=== PATIENT | female | born 1995 | race African-American/Black ===

== ENCOUNTER 2023-09-02 19:36 | Emergency (ER) | payer BC, SELFPAY ==
[2023-09-02 19:51] VITALS: BP 115/63; PULSE 85; RESP 14; TEMP 37; O2SAT 100
--- NOTE | 2023-09-02 20:22 | ED.FEMALEGU ---
HPI - Female Genitourinary General Chief complaint: Urogenital-Female Stated complaint: UTI Time Seen by Provider: 09/02/23 20:22 Source: patient Mode of arrival: ambulatory Limitations: no limitations History of Present Illness HPI Narrative: 28-year-old female presents with complaint of urinary frequency, urgency, dysuria for 2 days. Afebrile. Reports some lower abdominal pressure after urinating. Denies back pain. Denies . Having normal bowel movements. All systems reviewed and negative except as noted above. Related Data Allergies Allergy/AdvReac Type Severity Reaction Status Date / Time No Known Allergies Allergy Verified 09/02/23 20:29 Review of Systems Review of Systems: CONSTITUTIONAL: Denies fever, chills, or sweats. EYES: Denies visual changes, redness, or discharge. ENT: Denies rhinorrhea, congestion, sore throat, or otalgia. CARDIOVASCULAR: Denies chest pain, palpitations, or edema. RESPIRATORY: Denies cough or dyspnea. GASTROINTESTINAL: Denies abdominal pain, nausea, vomiting, or diarrhea. GENITOURINARY: Reports dysuria, frequency, urgency. Denies hematuria. SKIN: Denies rash or itching. MUSCULOSKELETAL: Denies back pain, joint pain, or myalgia. NEUROLOGIC: Denies headache, numbness, or weakness. PSYCHIATRIC: Denies anxiety or depression. All other systems reviewed are negative, except as documented in HPI. PMFSH Comments At time of signature, agree with nursing past medical, surgical, social and family history. There is no relevant family history pertinent to the presenting complaint. Exam Narrative: GENERAL: This is a well-nourished, well-developed patient, in no apparent distress. HEAD: normocephalic, atraumatic. EYES: PERRL. Sclera clear/white. Vision is grossly intact. EARS: External ears normal NOSE: External nose normal NECK: Neck supple, non-tender without lymphadenopathy, masses or thyromegaly. CARDIOVASCULAR: Regular rate and rhythm without murmurs, gallops, or rubs. RESPIRATORY: Clear to auscultation. Breath sounds equal bilaterally. No wheezes, rales, or rhonchi. SKIN: warm, Dry, intact with no suspicious lesions or rash, good texture and turgor. NEURO: awake, alert, and oriented to person, place and time. There were no obvious focal neurologic abnormalities. EXTREMITIES: No joint tenderness, effusion, or edema noted. Course Course Level of Care: Express Care Visit Vital Signs Vital signs: Vital Signs Temperature 37.0 C 09/02/23 19:51 Pulse Rate 85 09/02/23 19:51 Respiratory Rate 14 09/02/23 19:51 Blood Pressure 115/63 09/02/23 19:51 Pulse Oximetry 100 09/02/23 19:51 Oxygen Delivery Room Air 09/02/23 19:51 Temperature 37.0 C 09/02/23 19:51 Pulse Rate 85 09/02/23 19:51 Respiratory Rate 14 09/02/23 19:51 Blood Pressure 115/63 09/02/23 19:51 Pulse Oximetry 100 09/02/23 19:51 Oxygen Delivery Room Air 09/02/23 19:51 MDM - Female Genitourinary MDM Narrative Medical decision making narrative: use of leukocytes, 3+ blood. Will treat patient for urinary tract infection due to symptoms and urinalysis. Nontoxic. Patient is aware of diagnosis, understands and agrees to treatment plan. Anticipatory guidance given. Patient agrees to follow-up as directed and is aware of reasons to seek care at the emergency department. Portions of this record may have been created with voice recognition software Differential Diagnosis Differential diagnosis: Likely urinary tract infection Lab Data Labs: UCG Bedside Result Negative Reference Range: Negative Urine Glucose Negative Reference Range: Negative Urine Bilirubin Negative Reference Range: Negative Urine Ketone Negative
== END 2023-09-02 20:31 | disposition home or self-care (01) ==
PROVIDERS: Emergency Provider Nurse Practitioner Family
DX: N39.0 Urinary tract infection, site not specified (principal); B96.20 Unspecified Escherichia coli [E. coli] as the cause of diseases classified elsewhere; J45.909 Unspecified asthma, uncomplicated
CPT/HCPCS: 81003; 81025; 87077; 87086; 87088; 87186; 99203; G0463

== ENCOUNTER 2023-12-12 17:46 | Emergency (ER) | payer BC, SELFPAY ==
[2023-12-12 18:00] VITALS: BP 108/60; PULSE 112; RESP 16; TEMP 37.2; O2SAT 100
--- NOTE | 2023-12-12 18:01 | ED.FEMALEGU ---
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 She reports 1 month ago she had a spontaneous of a 5 week . She reports she has had bleeding since that time. Reports 3 days ago she began having heavier amount of bleeding with large clots, she needs to wear incontinence briefs because of the large amount of bleeding and she is soaking through those. She denies fever. Reports she has began having some abdominal and bilateral flank pain today. She reports she is passing clots approximately the size of her palm MD elicited complaint: vaginal bleeding Related Data Allergies Allergy/AdvReac Type Severity Reaction Status Date / Time No Known Allergies Allergy Verified 12/12/23 18:29 Review of Systems Review of Systems: CONSTITUTIONAL: Denies malaise, chills, sweats, or fever. CARDIOVASCULAR: Denies chest pain, palpitations, or edema. RESPIRATORY: Denies cough or dyspnea. GASTROINTESTINAL: Reports abdominal pain. Denies nausea, vomiting, diarrhea, bloody, or mucous stools. GENITOURINARY: Reports heavy vaginal bleeding with large clots SKIN: Denies rash or itching. MUSCULOSKELETAL: Reports flank pain All systems reviewed & are unremarkable except as noted in HPI and below PMFSH Comments At time of signature, agree with nursing past medical, surgical, social and family history. There is no relevant family history pertinent to the presenting complaint Exam Narrative: GENERAL: Nontoxic-appearing, well-nourished, and in no acute distress. HEAD: Normocephalic EYES: PERRLA, sclera clear ENT: Nares clear. Mucous membranes moist NECK: Supple. CHEST: No respiratory distress. Speaks in full sentences. HEART: Fast rate EXTREMITIES: Normal range of motion. No edema. Normal strength and sensation. SKIN: Warm, dry, no visible rash. NEURO: Alert and oriented x3. PSYCH: Normal mood and affect Course Course Emergency Course: Patient is aware of, understands and agrees to be transferred to the emergency room. Patient agrees to proceed directly to the emergency department. Portions of this record may have been created with voice recognition software Level of Care: Express Care Visit Vital Signs Vital signs: Vital Signs Temperature 98.9 F 12/12/23 18:00 Pulse Rate 112 H 12/12/23 18:00 Respiratory Rate 16 12/12/23 18:00 Blood Pressure 108/60 12/12/23 18:00 Pulse Oximetry 100 12/12/23 18:00 Oxygen Delivery Room Air 12/12/23 18:00 Temperature 98.9 F 12/12/23 18:00 Pulse Rate 112 H 12/12/23 18:00 Respiratory Rate 16 12/12/23 18:00 Blood Pressure 108/60 12/12/23 18:00 Pulse Oximetry 100 12/12/23 18:00 Oxygen Delivery Room Air 12/12/23 18:00 Reviewed. Transfer Transfered to: [facility] Transportation: Other (private vehcile) Transfer rationale: Heavy vaginal bleeding Accepting physician: Cory MDM - Female Genitourinary MDM Narrative Medical decision making narrative: Patient exam finding and symptoms warrant further evaluation the emergency room Critical Care Time Critical Care Time Critical Care Time: No Discharge Plan Discharge Clinical Impression: Vaginal bleeding Patient Disposition: Acute Care Hospital Condition: Stable Prescriptions: No Action phenazopyridine [Pyridium] 200 mg tablet 200 mg PO TID PRN (Reason: pain) 3 Days Qty: 10 0RF cephalexin 500 mg capsule 500 mg PO Q12H 7 Days Qty: 14 0RF Follow-up/Referrals: PHYSICIAN NOT ON STAFF,NONSTAFF [Primary Care Provider] - Time of Disposition: 19:00
[2023-12-12 18:15] VITALS: PULSE 110; RESP 18
== END 2023-12-12 18:15 | disposition short-term general hospital (02) ==
PROVIDERS: Emergency Provider Nurse Practitioner
DX: N93.9 Abnormal uterine and vaginal bleeding, unspecified (principal)
CPT/HCPCS: 99212; G0463

== ENCOUNTER 2023-12-12 18:27 | Day surgery (SDC) | payer BC, SELFPAY ==
[2023-12-12 19:02] VITALS: BP 93/49; PULSE 106; RESP 16; TEMP 36.2; O2SAT 100
--- NOTE | 2023-12-12 20:27 | ED.PREGNANCY ---
HPI - General Chief complaint: Vaginal Bleeding Stated complaint: VAG BLEEDING, HX MISCARRIAGE 11/11 Time Seen by Provider: 12/12/23 20:17 Source: patient Mode of arrival: ambulatory Limitations: no limitations History of Present Illness HPI Narrative: This is a 28 year old female that presents to the ER for abnormal uterine bleeding. Reports she had was around 8 weeks by LMP and US showing a of about 5 weeks. She was told the baby stopped growing. Took medications to induce . Reports this was about a month ago. She has been bleeding since. Reports the last couple of days her bleeding has become very heavy. Her OB is in [place]. Reports pelvic cramping. Denies fever, vomiting, dysuria. Related Data Allergies Allergy/AdvReac Type Severity Reaction Status Date / Time No Known Allergies Allergy Verified 12/12/23 18:29 Review of Systems Review of Systems: CONSTITUTIONAL: Denies fever GASTROINTESTINAL: Reports abdominal pain. Denies nausea, vomiting All systems reviewed & are unremarkable except as noted in HPI and below PMFSH Past Medical History Medical History (Updated 12/12/23 @ 22:50 by Jennifer Jacome PA-C) No active medical problems Social History Social History (Updated 12/12/23 @ 20:30 by Jennifer Jacome PA-C) Smoking status: Never smoker Exam Narrative: GENERAL: Well-appearing, well-nourished, and in no acute distress. HEAD: Normocephalic, atraumatic. EYES: EOMI. CHEST: Clear to auscultation. No respiratory distress. No wheezes rales or rhonchi HEART: Regular rate and rhythm. No murmur heard. Normal peripheral pulses. ABDOMEN: Soft, nontender, nondistended, normal active bowel sounds. EXTREMITIES: Normal range of motion. No edema. SKIN: Warm, dry, no rash. NEURO: No focal deficits. Alert and oriented x3. PSYCH: Normal mood and affect Course Course Emergency Course: patient updated on workup and recommendation for further management with D&C Consultations Consultation #1: Spoke with Dr. Farzad Hong about patient and workup who will take patient to the OR for D&C Date: 12/12/23 Vital Signs Vital signs: Vital Signs Temperature 97.2 F L 12/12/23 19:02 Pulse Rate 106 H 12/12/23 19:02 Respiratory Rate 16 12/12/23 19:02 Blood Pressure 93/49 L 12/12/23 19:02 Pulse Oximetry 100 12/12/23 19:02 Temperature 97.2 F L 12/12/23 19:02 Pulse Rate 106 H 12/12/23 19:02 Respiratory Rate 16 12/12/23 19:02 Blood Pressure 93/49 L 12/12/23 19:02 Pulse Oximetry 100 12/12/23 19:02 MDM - OB/Uterine Contractions MDM Narrative Medical decision making narrative: patient presents to the emergency department after a recent miscarriage with increasing vaginal bleeding. Mildly tachycardic and blood pressure soft upon arrival. Given a L of IV fluids in the ED. blood pressure and heart rate did respond. Cbc shows normocytic anemia hemoglobin of 8.5. Metabolic panel without concerning findings. Quantitative beta-hCG 191. Spoke with Dr. Farzad Hong about patient and workup who will take patient to the OR for D&C. patient updated on workup and agrees with plan of care Differential Diagnosis Differential diagnosis: Likely other ( incomplete , retained products of conception, anemia) Lab Data Attestation: I reviewed the patient's lab results. 12/12/23 21:15 12/12/23 21:15 Labs: Lab Results 12/12/23 12/12/23 Range/Units 21:15 21:58 WBC 7.0 (4.5-10.0) K/mm3 RBC 2.59 L (4.2-5.4) M/mm3 Hgb 8.5 L (12.0-15.0) g/dL Hct 25.9 L (37.0-47.0) % MCV 100.0 (80-100) fl MCH 32.8 (26-34) pg MCHC 32.8 (32-36) g/dl RDW 12.9 (11.5-14.5) % Plt Count 225 (150-375) k/mm3 MPV 9.9 (7.4-10.4) fl Immature Gran % (Auto) 0.3 (0-0.5) % Neut % (Auto) 83.7 H (45.5-73.1) % Lymph % (Auto) 11.5 L (18.3-44.2) % [place] % (Auto) 3.8 (2.6-8.5) % Eos % (Auto) 0.4 (0-4.4) % Baso % (A
[2023-12-12] MEDS: SODIUM CHLORIDE 0.9% IV 1,000 ML 999 ML IV CONT (21:14)
[2023-12-12 21:26] LABS: Basophils Percent Auto 0.3 % (0.2-1.2); Eosinophils Percent Auto 0.4 % (0-4.4); Hematocrit 25.9 % (37.0-47.0); Hemoglobin 8.5 g/dL (12.0-15.0); Immature Granulocyte Absolute 0.02 K/mm3 (0.00-0.031); Immature Granulocyte Percent A 0.3 % (0-0.5); Lymphocytes Absolute Auto 0.81 K/mm3 (0.9-3.2); Lymphocytes Percent Auto 11.5 % (18.3-44.2); Mean Corpuscular HGB Conc 32.8 g/dl (32-36); Mean Corpuscular Hemoglobin 32.8 pg (26-34); Mean Platelet Volume 9.9 fl (7.4-10.4); Monocytes Absolute Auto 0.3 K/mm3 (0.1-0.6); Monocytes Percent Auto 3.8 % (2.6-8.5); Neutrophils Absolute Auto 5.9 K/mm3 (1.3-6.7); Neutrophils Percent Auto 83.7 % (45.5-73.1); Platelet Count Result 225 k/mm3 (150-375); Red Blood Count 2.59 M/mm3 (4.2-5.4); Red Cell Distribution Width 12.9 % (11.5-14.5)
[2023-12-12 21:37] LABS: Alanine Aminotransferase 7 U/L (6-35); Alkaline Phosphatase 66 U/L (38-126); Anion Gap 6 mmol/L (4-12); Aspartate Amino Transferase 21 U/L (14-36); Bilirubin,Total 0.7 mg/dL (0.2-1.3); Blood Urea Nitrogen 11 mg/dL (7-17); Carbon Dioxide 25 mmol/L (22-30); Chloride 107 mmol/L (98-107); Estimated CRCL calculation 77 ml/min; Estimated Glomerular Filt Rate > 60; Glucose 111 mg/dL (65-110); Potassium 3.7 mmol/L (3.4-5.0); Sodium 138 mmol/L (137-145)
[2023-12-12 21:52] LABS: Beta HCG Quantitative 191.51 mIU/ML
[2023-12-12 22:13] LABS: INR 1.3; Partial Thromboplastin Time 27.8 Seconds (22.3-36.8); Prothrombin Time 16.9 Seconds (11.1-14.7)
--- NOTE | 2023-12-12 22:44 | PM.IMHP ---
H&P: HPI History of Present Illness Date/Time: 12/12/23 22:44 Chief Complaint: Vaginal bleeding with 1st trimester Narrative: 28-year-old 2 para seen through the ER after failed first-trimester cc she was given medication induce portion she is bleeding fairly. . Ultrasound small pill for. She continues to bleed suction dilatation curettage will be undertaken as this is retained placenta risks and exclusive aspiration, bleeding, transfusion, perforation injury to bladder with need PMFSH Past Medical History Medical History No active medical problems Social History Social History Smoking status: Never smoker Meds Home Medications and Allergies Home Medications Medication Instructions Recorded Confirmed Type cephalexin 500 mg capsule 500 mg PO Q12H 7 days #14 caps 09/02/23 Rx phenazopyridine 200 mg tablet 200 mg PO TID PRN pain 3 days #10 09/02/23 Rx (Pyridium) tabs Allergies Allergy/AdvReac Type Severity Reaction Status Date / Time No Known Allergies Allergy Verified 12/12/23 18:29 Vital Signs Vital Signs - 24 hr 12/12/23 19:02 Temperature 97.2 F L Pulse Rate 106 H Respiratory Rate 16 Blood Pressure 93/49 L Pulse Oximetry 100 Exam Const: General: cooperative, healthy appearing and comfortable Nutritional Appearance: average body habitus Orientation/consciousness: oriented to person, oriented to place and oriented to time HENMT: Head: normal to inspection Resp: Effort & Inspection: normal respiratory effort Cardio: Rate: regular rate Rhythm: regular rhythm Heart sounds: S1 normal heart sound present and S2 normal heart sound present GI: Inspection: normal to inspection : External Female Exam: normal external appearance Speculum Exam - Vagina: normal appearance of the vagina and vaginal bleeding Speculum Exam - Cervix: normal appearance of the cervix Bimanual exam- vagina & uterus: enlarged Bimanual Exam- Adnexa, other: normal adnexae H&P: Results Labs Labs: Short CBC 12/12/23 Range/Units 21:15 WBC 7.0 (4.5-10.0) K/mm3 Hgb 8.5 L (12.0-15.0) g/dL Hct 25.9 L (37.0-47.0) % Plt Count 225 (150-375) k/mm3 BMP 12/12/23 21:15 Sodium 138 Potassium 3.7 Chloride 107 Carbon Dioxide 25 BUN 11 Creatinine 0.70 Glucose 111 H Calcium 9.0 Liver Function 12/12/23 Range/Units 21:15 Total Bilirubin 0.7 (0.2-1.3) mg/dL AST 21 (14-36) U/L ALT 7 (6-35) U/L Alkaline Phosphatase 66 (38-126) U/L Albumin 4.0 (3.5-5.1) g/dL Assessment and Plan Assessment and plan (1) Incomplete : Code(s): O03.4 - Incomplete spontaneous without complication Status: Acute Plan patient will suction dilatation curettage
--- NOTE | 2023-12-12 22:48 | WPDHPUPDATE1 ---
History and Physical Update Update Date/Time: 12/12/23 22:48 History and Physical has been reviewed, including an updated exam of the patient. There are NO changes in the patient's condition. Risks, benefits, and alternatives have been discussed and questions answered. Patient agrees to proceed with procedure.
--- NOTE | 2023-12-12 23:11 | WPDANESEPPF ---
Anes - Initial Pre Proc Eval Procedure: Operation Date: 12/12/23 23:00 Proposed Procedures p D&C Suction and Sharp - Devan Hong MD Date/Time: 12/12/23 23:11 Surgeon: Devan Hong MD Pre Op Diagnosis: VAG BLEEDING, HX MISCARRIAGE 11/11 Patient Data Age: 28 Gender: F Height: 1.68 m Weight: 48 kg Last Vital Signs Temp 36.2 C L 12/12/23 19:02 Pulse 106 H 12/12/23 19:02 Resp 16 12/12/23 19:02 BP 93/49 L 12/12/23 19:02 Pulse Ox 100 12/12/23 19:02 Allergies Allergy/AdvReac Type Severity Reaction Status Date / Time No Known Allergies Allergy Verified 12/12/23 18:29 Home Medications Medication Instructions Recorded Confirmed Type cephalexin 500 mg capsule 500 mg PO Q12H 7 days #14 caps 09/02/23 Rx phenazopyridine 200 mg tablet 200 mg PO TID PRN pain 3 days #10 09/02/23 Rx (Pyridium) tabs hydrocodone 5 mg-acetaminophen 325 1 tablet PO Q4H PRN pain #14 tabs 12/12/23 Rx mg tablet Laboratory Tests 12/12/23 12/12/23 21:15 21:58 WBC 7.0 K/mm3 (4.5-10.0) RBC 2.59 L M/mm3 (4.2-5.4) Hgb 8.5 L g/dL (12.0-15.0) Hct 25.9 L % (37.0-47.0) MCV 100.0 fl (80-100) MCH 32.8 pg (26-34) MCHC 32.8 g/dl (32-36) RDW 12.9 % (11.5-14.5) Plt Count 225 k/mm3 (150-375) MPV 9.9 fl (7.4-10.4) Immature Gran % (Auto) 0.3 % (0-0.5) Neut % (Auto) 83.7 H % (45.5-73.1) Lymph % (Auto) 11.5 L % (18.3-44.2) [place] % (Auto) 3.8 % (2.6-8.5) Eos % (Auto) 0.4 % (0-4.4) Baso % (Auto) 0.3 % (0.2-1.2) Lymph # (Auto) 0.81 L K/mm3 (0.9-3.2) [place] # (Auto) 0.3 K/mm3 (0.1-0.6) Eos # (Auto) 0.0 K/mm3 (0-0.3) Baso # (Auto) 0.0 K/mm3 (0.0-0.1) Abs Immat Gran (auto) 0.02 K/mm3 (0.00-0.031) Absolute Neuts (auto) 5.9 K/mm3 (1.3-6.7) Absolute Nucleated RBC 0.000 K/mm3 (0.0-0.012) Nucleated RBC % 0.0 % (0.0-0.2) PT 16.9 H Seconds (11.1-14.7) INR 1.3 APTT 27.8 Seconds (22.3-36.8) Sodium 138 mmol/L (137-145) Potassium 3.7 mmol/L (3.4-5.0) Chloride 107 mmol/L (98-107) Carbon Dioxide 25 mmol/L (22-30) Anion Gap 6 mmol/L (4-12) BUN 11 mg/dL (7-17) Creatinine 0.70 mg/dL (0.7-1.0) Estim Creat Clear Calc 77 ml/min Estimated GFR > 60 (59 - ) Glucose 111 H mg/dL (65-110) Calcium 9.0 mg/dL (8.4-10.2) Total Bilirubin 0.7 mg/dL (0.2-1.3) AST 21 U/L (14-36) ALT 7 U/L (6-35) Alkaline Phosphatase 66 U/L (38-126) Total Protein 7.0 g/dL (6.3-8.2) Albumin 4.0 g/dL (3.5-5.1) Beta HCG, Quant 191.51 mIU/ML Blood Type B Positive Antibody Screen Negative Screen Not Reportable Baby's Blood Type Not Reportable Baby's CYNTHIA Not Reportable Doses of RhIg Required 0 Patient hx anesthesia problems: none Family hx anesthesia problems: none Results Review: All pre-operative results and documents have been reviewed as part of the pre-operative evaluation. [facility] Past Medical History Medical History No active medical problems Social History Social History Smoking status: Never smoker Anes - Eval Final PreProcedure Day of Procedure 12/12/23 23:11 Patient weight: normal Lungs: clear to auscultation Airway: Mallampati scale class 1 Neurological: alert and oriented Last oral intake: >/= 8 hours ASA classification: II Emergent: yes Anesthetic plan: proceed Anesthesia type and monitoring: general Other findings: patient last ate at 1300 Results Review: All pre-operative results and documents have been reviewed as part of the pre-operative evaluation. In
[2023-12-12] MEDS: ceFAZolin SODIUM 1 GM VIAL IV PUSH (23:24)
--- NOTE | 2023-12-12 23:39 | W.PM.PROC2 ---
Procedure Note - Detailed Date of Procedure 12/12/23 Pre-op Diagnosis VAG BLEEDING, HX MISCARRIAGE 11/11 Post-op Diagnosis Same Procedure Performed Suction dilatation and curettage Surgeon Devan Hong MD Anesthesia MAC and Local Indications 28-year-old 2 para 0 1 her first-trimester with a failed medically induced Findings uterus sounded to 10cm. Tissue consistent with products conception. Description of Procedure Patient was prepped draped in the normal sterile fashion placed in dorsal position. Under excellent IV sedation weighted speculum placed posterior fornix vagina. Anterior lip of the cervix grasped with a single-tooth tenaculum. 2.5cc 1% xylocaine anesthesia placed at 2, 4, 8, 10:00 a.m. of the cervix. Uterus sounded to 10cm. Serial dilatation with fragmented dilators performed followed by passage of the 10. Suction curette. Thickened placental appearing tissue was removed and a good grating sound was heard. Instruments were withdrawn blood loss estimated 5cc a 25cc. All sponge, needle, instrument counts were correct. There were no immediate complications she did not require RhoGAM as she is Rh positive Estimated Blood Loss 25 Drains No Packing No Pathology Yes Complications No immediate complications Condition Stable Disposition PACU
[2023-12-12 23:44] VITALS: BP 100/67; PULSE 94; RESP 18; O2SAT 100
[2023-12-12] MEDS: LACTATED RINGERS 1,000 ML 30 ML IV CONT (23:44)
[2023-12-13 00:14] VITALS: BP 98/54; PULSE 90; RESP 18; O2SAT 100
== END 2023-12-13 00:38 | disposition home or self-care (01) ==
LOC: ANHED 20:53 → ANHSURGERY 22:38
PROVIDERS: Emergency Provider Physician Assistant; Visit Provider Obstetrics & Gynecology
PROC: (CPT 59812; principal; 2023-12-12 23:00)
DX: O03.4 Incomplete spontaneous abortion without complication (principal); D64.9 Anemia, unspecified
CPT/HCPCS: 59812; 36415; 80053; 84702; 85025; 85461; 85610; 85730; 86850; 86900; 86901; 88305; 96360; 99285; J0690; J1100; J2210; J2250; J2405; J2704; J3010; J7030; J7120